=== PATIENT | male | born 1995 | race Caucasian/White ===

== ENCOUNTER 2020-04-13 14:00 | Emergency (ER) | payer OTHER ==
[~2020-04-13] VITALS: Ht 185.4 cm; Wt 113.4 kg
[2020-04-13 15:33] VITALS: BP 142/72
== END 2020-04-13 15:33 | disposition home or self-care (01) ==
LOC: M.ERS 14:00
DX: R50.9 Fever, unspecified (principal); Z20.828 Contact with and (suspected) exposure to other viral communicable diseases